=== PATIENT | female | born 1935 | race Caucasian/White ===

== ENCOUNTER 2018-08-27 15:05 | Emergency (ER) | payer MEDICARE, OTHER ==
--- NOTE | 2018-08-27 15:20 | ED.PDOC ---
History of Present Illness - General Chief Complaint: Trauma Stated Complaint: pain left knee with weight bearing Time Seen by Provider: 08/27/18 15:17 Source: patient Exam Limitations: no limitations - History of Present Illness Initial Comments: patient is a 83-year-old female who got knocked over by the wind and a gate by her house causing injury to her left knee. Patient stated that she was unable to get up by herself and she cannot weight-bear. Laying in the bed she denies any pain or discomfort. But she states when she tries to weight-bear there is significant pain in her left knee. She otherwise is healthy and denies any other acute complaints. She denies any dizziness, weakness, shortness of breath, or chest pain. Occurred: just prior to arrival Pain - Lower Extremity: severe: Left Knee Method of Injury: fell Improving Factors: immobilization, rest Worsening Factors: movement Allergies/Adverse Reactions: Allergies NO KNOWN ALLERGY Allergy (Verified 08/27/18 15:24) Home Medications: Ambulatory Orders NK 08/27/18 Review of Systems - Review of Systems Constitutional: States: no symptoms reported. Denies: chills, fever, weakness EENTM: States: no symptoms reported Respiratory: States: no symptoms reported. Denies: short of breath Cardiology: States: no symptoms reported. Denies: chest pain Gastrointestinal/Abdominal: States: no symptoms reported. Denies: abdominal pain Genitourinary: States: no symptoms reported Musculoskeletal: States: see HPI Family Medical History - Family History Mother Family History: Unknown Living Status: Cause of : Old age Physical Exam - Physical Exam General Appearance: Alert, Comfortable, No apparent distress Eyes, Ears, Nose, Throat: PERRL/EOMI Neck: non-tender, full range of motion Cardiovascular/Respiratory: regular rate, rhythm, no M/R/G, normal peripheral pulses, normal breath sounds, no respiratory distress Gastrointestinal/Abdominal: non-tender Leg: other - slight bruising to left knee with to point tenderness and FROM, no shortening and no rotation, Progress - Progress Progress: 08/27/18 15:55 patient has no pain at this time. Discussed proximal fracture of the tibia and need for non-weight bearing status. Will put in knee immobilizer and wanted to arrange to have her in rehab as she lives alone. However, she has family friend with her that functions as family and states she will take her home with her. She refuses to go to rehab and the friend is in contact with her nearest relative to coordinate with. She understands she cannot weight bear at all and will need follow up with ortho. Both patient and family understand and are determined to take her home. No pain medication at this time as she has no pain. 08/27/18 16:02 patient is alert and oriented and able to understand our concerns. Family will take her home and arrange outpatient follow up . - Results/Orders Results/Orders: Patient Name: LUCIANA MENJIVAR Gender: Female Date of : 1935 Referring Physician: JAYLIN RICE Organization: [facility] Accession Number: [id number] Requested Date: August 27, 2018 15:17 Report Status: Final Requested Procedure: 1 Procedure Description: Tibia/Fibula,Left Modality: CR Findings Reporting MD: Darius Mchugh Fellow MD: Not available Dictation Time: Technical Writing Lead/Mgr: Not available Clinical Trials Manager Date: Two-view left tibia/fibula. Two-view left knee. Indication: fall with pain with weight bearing Comparison: Left femur. Impression: There is a subtle sagittally oriented lucency of the medial tibial metaphysis likely reflecting a nondisplaced fracture. This may extend into the midline tibial plateau. Further characterization with CT of the left knee extending to the mid tibia/fibula recommended. Associated moderate size knee effusion present. Mild tricompartmental osteoarthritis left knee. No fracture of the distal left tibia or fibula identified.\ Departure - Departure Clinical Impression: Tibial fracture Qualifiers: Encounter type: initial encounter Tibia location: proximal Fracture type: closed Fracture morphology: other fracture Laterality: left Qualified Code(s): S82.192A - Other fracture of upper end of left tibia, initial encounter for closed fracture Disposition: Discharge to Home or Self Care Condition: Good Departure Forms: ED Discharge - Pt. Copy, Patient Portal Self Enrollment Instructions: DI for Trauma Home Medications: Ambulatory Orders NK 08/27/18 Additional Instructions: follow up with ortho in 3-4 days. Do not weight bear
--- NOTE | 2018-08-27 15:42 | RAD ---
EXAM DESCRIPTION: Femur,Left CLINICAL HISTORY: fall with pain with weight bearing COMPARISON: None. IMPRESSION: 3 views of the left femur show diffuse osteopenia the osseous structures without acute fracture, focal bone destruction, or joint dislocation. Moderate vascular calcifications are seen. Moderate joint space narrowing and joint line osteophytes consistent with osteoarthritic changes of the medial tibiofemoral compartment are seen. 2 cm radiopaque density in the soft tissue lateral to the mid left femur is of unknown etiology or clinical significance if any. This could be external to the patient or represent soft tissue mass or fluid collection. Incidentally noted and partly visualized proximal tibia shows oblique, vertically oriented fracture from the tibial spine to the medial metadiaphyseal region with questionable fracture extending in a similar direction laterally. Electronically signed by: Gary Summers MD 08/27/2018 3:39 PM CDT
--- NOTE | 2018-08-27 15:42 | RAD ---
Two-view left tibia/fibula. Two-view left knee. Indication: fall with pain with weight bearing Comparison: Left femur. Impression: There is a subtle sagittally oriented lucency of the medial tibial metaphysis likely reflecting a nondisplaced fracture. This may extend into the midline tibial plateau. Further characterization with CT of the left knee extending to the mid tibia/fibula recommended. Associated moderate size knee effusion present. Mild tricompartmental osteoarthritis left knee. No fracture of the distal left tibia or fibula identified. Electronically signed by: Darius Mchugh MD 08/27/2018 3:38 PM CDT
[2018-08-27 17:08] VITALS: BP 180/73; TEMP 98.4; O2SAT 97
== END 2018-08-27 17:08 | disposition home or self-care (01) ==
LOC: ER 15:05
DX: S82.192A Other fracture of upper end of left tibia, initial encounter for closed fracture (principal); W18.39XA Other fall on same level, initial encounter; Y92.009 Unspecified place in unspecified non-institutional (private) residence as the place of occurrence of the external cause